=== PATIENT | female | born 1990 | race Caucasian/White ===

== ENCOUNTER 2016-08-05 01:12 | Inpatient (IN) | payer OTHER ==
[~2016-08-05] VITALS: Ht 129.5 cm; Wt 71.3 kg
[~2016-08-05 01:12] MED LIST: ATIVAN1 MG PO; BUSPAR10 MG PO; Dilantin PO; KEFLEX500 MG PO; KEPPRA1000 MG PO; LAMICTAL100 MG PO; LAMOTRIGINE200 MG PO; LOPID600 MG PO; LaMICtal PO; NICOTINE PATCH1 EAC2 TD; PROMETHAZINE HC25 M1 PO; RISPERDAL2 MG PO; SUBOXONE 8 MG-1 EAC2 SL; TOPAMAX PO; TOPAMAX100 MG PO; TRI-SPRINTEC1 EACH PO; ZYPREXA15 MG PO
[2016-08-05 01:58] LABS: HEMATOCRIT 38.8 % (36.0-46.0); MCH 31.1 PG (29.0-34.0); MCHC 34.5 G/DL (30.0-36.0); MEAN PLAT.VOLUME 10.5 uM^3 (9.5-12.4); PLATELET COUNT 198 K/uL (156-360); RBC DIS.WIDTH-CV 11.4 % (11.8-14.6); RBC DIS.WIDTH-SD 37.2 % (39-53); RED BLOOD COUNT 4.31 M/uL (3.80-5.20); WHITE BLOOD COUNT 6.8 K/uL (4.1-10.2)
[2016-08-05 02:06] LABS: CHLORIDE 105 mEq/L (99-109); POTASSIUM 3.7 mEq/L (3.7-5.4); SODIUM 139 mEq/L (136-147)
[2016-08-05 02:08] LABS: GLUCOSE 101 mg/dL (70-99)
[2016-08-05 02:09] LABS: ANION GAP 9 MEQ/L (2-14)
[2016-08-05 02:11] LABS: SERUM ETHYL ALCOHOL < 10 mg/dL
[2016-08-05 02:12] LABS: GFR ESTIMATE (CALCULATED) > 59 mL/min/
[2016-08-05 02:14] LABS: UREA NITROGEN (BUN) 9 mg/dL (9-23)
[2016-08-05 02:15] LABS: SALICYLATE < 5.0 MG/DL (15-30)
[2016-08-05 02:22] LABS: QUANTITATIVE HCG < 4.0 MIU/ML
[2016-08-05 04:51] LABS: ADD MIUA? NO; BILIRUBIN NEGATIVE; BLOOD NEGATIVE; COLOR YELLOW ((YELLOW)); GLUCOSE (STRIP) NEGATIVE; KETONES NEGATIVE; LEUKOCYTES NEGATIVE; NITRITE NEGATIVE; PROTEIN (STRIP) NEGATIVE; SPECIFIC GRAVITY 1.028 (1.000-1.030); UROBILINOGEN 0.2 MG/DL (0.2-1.0)
[2016-08-05] MEDS ORDERED: ZOLOFT100 MG PO (08:06)
[2016-08-05] MEDS ORDERED: DEPAKOTE500 MG PO (08:07)
[2016-08-05] MEDS ORDERED: SUBOXONE 8 MG-1 EAC2 SL (08:09)
[2016-08-05 08:59] VITALS: BP 85/52
[2016-08-05] MEDS ORDERED: EPIPEN ADU0.3 MG/0.3 IM (09:44)
[2016-08-05] MEDS ORDERED: SERTRALINE HCL50 MG PO (09:44)
[2016-08-05] MEDS ORDERED: VENTOLIN HFA18 GM IH (09:45)
[2016-08-05] MEDS ORDERED: PEPCID20 MG PO (09:46)
[2016-08-05 10:10] VITALS: BP 85/52
[2016-08-05 15:12] VITALS: BP 83/51
[2016-08-05 19:30] VITALS: BP 80/50
[2016-08-06 07:31] VITALS: BP 95/51
[2016-08-06 15:52] VITALS: BP 94/51
[2016-08-06 18:17] VITALS: BP 98/56
[2016-08-07 08:09] VITALS: BP 81/45
== END 2016-08-07 11:45 | disposition home or self-care (01) | DRG 885 ==
LOC: EME 01:12 → 1WEST 04:55 → EDOF 04:55 → 1WEST 04:55
PROVIDERS: Emergency Medicine
DX: F33.2 Major depressive disorder, recurrent severe without psychotic features (principal); F11.20 Opioid dependence, uncomplicated; S60.812A Abrasion of left wrist, initial encounter; X78.9XXA Intentional self-harm by unspecified sharp object, initial encounter; J45.909 Unspecified asthma, uncomplicated; G40.909 Epilepsy, unspecified, not intractable, without status epilepticus; F17.200 Nicotine dependence, unspecified, uncomplicated
CPT/HCPCS: 80048; 81003; 84702; 85027; 90839; 99281; 99285; G0480; Q0177

== ENCOUNTER 2016-08-20 20:35 | Emergency (ER) | payer OTHER ==
[~2016-08-20] VITALS: Ht 160 cm; Wt 67.5 kg
[~2016-08-20 20:35] MED LIST changes: +DEPAKOTE500 MG PO; +EPIPEN ADU0.3 MG/0.3 IM; +PEPCID20 MG PO; +SERTRALINE HCL50 MG PO; +VENTOLIN HFA18 GM IH; +ZOLOFT100 MG PO
[2016-08-20 21:31] LABS: HEMATOCRIT 42.5 % (36.0-46.0); MCHC 35.1 G/DL (30.0-36.0); MCV 88.5 FL (83-99); PLATELET COUNT 256 K/uL (156-360); RBC DIS.WIDTH-CV 11.5 % (11.8-14.6); WHITE BLOOD COUNT 4.2 K/uL (4.1-10.2)
[2016-08-20 21:33] LABS: ADD MIUA? YES; BILIRUBIN SMALL; BLOOD NEGATIVE; COLOR AMBER ((YELLOW)); GLUCOSE (STRIP) NEGATIVE; KETONES 20; LEUKOCYTES LARGE; NITRITE NEGATIVE; PROTEIN (STRIP) 100; SPECIFIC GRAVITY 1.029 (1.000-1.030)
[2016-08-20 21:40] LABS: CHLORIDE 103 mEq/L (99-109); POTASSIUM 3.6 mEq/L (3.7-5.4); SODIUM 140 mEq/L (136-147)
[2016-08-20 21:42] LABS: GLUCOSE 87 mg/dL (70-99)
[2016-08-20 21:43] LABS: ANION GAP 14 MEQ/L (2-14)
[2016-08-20 21:44] LABS: TOTAL BILIRUBIN 0.6 mg/dL (0.0-1.0)
[2016-08-20 21:46] LABS: ALKALINE PHOSPHATASE 66 IU/L (3-129); GFR ESTIMATE (CALCULATED) > 59 mL/min/
[2016-08-20 21:47] LABS: UREA NITROGEN (BUN) 11 mg/dL (9-23)
[2016-08-20 21:54] LABS: QUANTITATIVE HCG < 4.0 MIU/ML
[2016-08-20 22:02] LABS: CASTS NONE SEEN /LPF; EPITHELIAL CELLS 3+ /HPF; MUCUS 3+ /LPF
[2016-08-20 22:03] LABS: BACTERIA 2+ /HPF; RED BLOOD CELLS NONE SEEN /HPF (0-5); UCUL ADDED? NO; WHITE BLOOD CELLS 0-5 /HPF (0-5)
[2016-08-20 22:04] LABS: LIPASE 23 U/L (1.0-51.0)
[2016-08-20] MEDS ORDERED: ZOFRAN ODT4 MG PO (22:07)
[2016-08-20] MEDS ORDERED: KEFLEX500 MG PO (22:07)
[2016-08-20 22:13] VITALS: BP 116/73
== END 2016-08-20 22:10 | disposition home or self-care (01) ==
LOC: EME 20:35
DX: N39.0 Urinary tract infection, site not specified (principal); R11.2 Nausea with vomiting, unspecified; J45.909 Unspecified asthma, uncomplicated; R56.9 Unspecified convulsions; Z87.891 Personal history of nicotine dependence
CPT/HCPCS: 80053; 81003; 83690; 84702; 85027; 99281; 99284